=== PATIENT | male | born 1955 | race American Indian/Alaskan Native ===

== ENCOUNTER 2017-12-31 16:30 | Emergency (ER) | payer MEDICAID ==
[2017-12-31 16:45] VITALS: BP 148/77
[2017-12-31] MEDS ORDERED: DECADRON IM ONE (17:38)
--- NOTE | 2017-12-31 17:38 | Emergency Department Report ---
ED Rash HPI - HPI Chief Complaint: Skin Rash Stated Complaint: RASH ALL OVER Time Seen by Provider: 12/31/17 17:18 Duration: Today Location: Neck, Back, Upper Extremities, Lower Extremities Suspected Cause: Unknown Rash Symptoms: Yes Itching, No Facial Swelling, No Tongue/Oral Swelling, No Breathing Difficulties, No Choking Sensation, No Wheezing/Dyspnea, No Peeling, No Blistering, No Fever, No Lightheaded, No Malaise, No Myalgias Other History: This is a 62-year-old -[place] male presents with a generalized pruritic rash. Patient states he was leaning down and bear full itching around 2 PM today. He noted this rash to the neck, posterior torso, and extremities. 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 Past medical history of HIV. PCP is at [facility]. he denies drooling, shortness of breath, difficulty swallowing, or chest pain. ED Review of Systems ROS: Stated complaint: RASH ALL OVER Other details as noted in HPI Respiratory: denies: cough, shortness of breath, wheezing Cardiovascular: denies: chest pain, palpitations Gastrointestinal: denies: abdominal pain, nausea, diarrhea Musculoskeletal: denies: back pain, joint swelling, arthralgia Skin: rash (generalized pruritic rash). denies: lesions Neurological: denies: headache, weakness, paresthesias Psychiatric: denies: anxiety, depression ED Past Medical Hx - Past Medical History Previous Medical History?: Yes Hx HIV: Yes Additional medical history: cardiac stent - Surgical History Past Surgical History?: Yes Additional Surgical History: cardiac stent - Social History Smoking Status: Current Every Day Smoker Substance Use Type: None - Medications Home Medications: Home Medications Medication Instructions Recorded Confirmed Last Taken Type Prednisone [predniSONE 10 mg 10 mg PO .TAPER #1 tab.ds.pk 12/31/17 Unknown Rx (6-Day Pack, 21 Tabs)] hydrOXYzine PAMOATE [Vistaril] 25 mg PO Q6HR PRN #12 capsule 12/31/17 Unknown Rx Rash Exam - Exam General: Vital signs noted. No distress. Alert and acting appropriately. HEENT: No Periorbital Edema, No Conjuctival Injection, No Chemosis, No Perioral Edema, No Tongue Edema, No Uvular Edema, No Compromised Airway, No Drooling Lungs: Yes Good Air Exchange (Normal Breath Sounds), No Wheezes, No Ronchi, No Stridor, No Cough, No Labored Respirations, No Retractions, No Use of Accessory Muscles, No Other Abnormal Lung Sounds Heart: Yes Regular, No Murmur Skin: Yes Maculopapular Rash (erythematous maculopapular rash to posterior neck , posterior torso, bilateral lower extremity, blanchable), No Urticarial Rash, No Morbilliform rash, No Bulla(e), No Excoriations, No Weeping, No Tenderness, No Erythema, No Edema, No Encrustations ED Course Vital Signs 12/31/17 16:44 Temperature 97.8 F Pulse Rate 68 Respiratory 16 Rate Blood Pressure 148/77 [Right] O2 Sat by Pulse 99 Oximetry ED Medical Decision Making - Medical Decision Making Patient was examined by this provider in fast track. Vitals are normal and patient is in no acute distress. Given dexamethasone 8 mg IM once while in ER. Physical findings susceptible of allergic contact dermatitis. Start prednisone taper and Vistaril. Patient discharged home in stable condition. Follow up with PCP in 2-3 days. Critical care attestation.: If time is entered above; I have spent that time in minutes in the direct care of this critically ill patient, excluding procedure time. ED Disposition Clinical Impression: Pruritic rash Contact dermatitis Qualifiers: Contact dermatitis type: allergic Contact dermatitis trigger: unspecified trigger Qualified Code(s): L23.9 - Allergic contact dermatitis, unspecified cause Disposition: - TO HOME OR SELFCARE Is pt being admited?: No Does the pt Need Aspirin: No Condition: Stable Instructions: Contact Dermatitis (ED) Additional Instructions: Complete full course of steroids since prescribed. Follow-up with your primary care provider in the next week. Return to the emergency room if short of breath, chest pain, or difficulty breathing. Prescriptions: hydrOXYzine PAMOATE [Vistaril] 25 mg PO Q6HR PRN #12 capsule PRN Reason: Itching Prednisone [predniSONE 10 mg (6-Day Pack, 21 Tabs)] 10 mg PO .TAPER #1 tab.ds.pk Referrals: [facility] [Outside] - 3-5 Days [facility] [Outside] - 3-5 Days Forms: Work/School Release Form(ED), Accompanied Note Time of Disposition: 18:17
== END 2017-12-31 18:40 | disposition home or self-care (01) ==
LOC: ED 16:30
DX: L25.9 Unspecified contact dermatitis, unspecified cause (principal); F17.200 Nicotine dependence, unspecified, uncomplicated
CPT/HCPCS: 96372; 99282; J1100

== ENCOUNTER 2019-05-30 10:53 | Emergency (ER) | payer MEDICAID ==
--- NOTE | 2019-05-30 15:51 | Emergency Department Report ---
ED General Adult HPI - General Chief complaint: Neck Pain/Injury Stated complaint: PAIN IN LEFT SIDE OF NECK Time Seen by Provider: 05/30/19 14:39 Source: patient Mode of arrival: Ambulatory Limitations: No Limitations - History of Present Illness Initial comments: This is a 64-year-old -[place]ian male who presents to the emergency room with sore throat and swollen lymph nodes on left side of neck for 2 to 3 days. Past medical history of hypertension, HIV, and cardiac stents. Patient reports her chronic occasional smoker's cough. He denies shortness of breath, chest pain, fever, chills, nausea, vomiting, or weakness. Onset/Timin -: days(s) Location: neck (Sore throat) Severity scale (0 -10): 6 Quality: aching Consistency: intermittent Worsens with: eating, other (Swallowing) Associated Symptoms: denies other symptoms Treatments Prior to Arrival: none - Related Data Previous Rx's Medication Instructions Recorded Last Taken Type Prednisone [predniSONE 10 mg 10 mg PO .TAPER #1 tab.ds.pk 12/31/17 Unknown Rx (6-Day Pack, 21 Tabs)] hydrOXYzine PAMOATE [Vistaril] 25 mg PO Q6HR PRN #12 capsule 12/31/17 Unknown Rx Ibuprofen [Motrin 800 MG tab] 800 mg PO Q8HR PRN #15 tablet 02/06/18 Unknown Rx Nystas/Diphen/Xyl Visc/Mylanta 15 ml PO Q3H PRN #100 ml 05/30/19 Unknown Rx [Magic Mouthwash] Penicillin Vk [Veetids TAB] 250 mg PO QID 10 Days #40 tablet 05/30/19 Unknown Rx Allergies Allergy/AdvReac Type Severity Reaction Status Date / Time No Known Allergies Allergy Verified 02/06/18 00:30 ED Review of Systems ROS: Stated complaint: PAIN IN LEFT SIDE OF NECK Other details as noted in HPI Constitutional: denies: chills, fever ENT: throat pain. denies: ear pain Respiratory: denies: cough, shortness of breath, wheezing Cardiovascular: denies: chest pain, palpitations Gastrointestinal: denies: abdominal pain, nausea, diarrhea Musculoskeletal: denies: back pain, joint swelling, arthralgia Skin: denies: rash, lesions Neurological: denies: headache, weakness, paresthesias Psychiatric: denies: anxiety, depression ED Past Medical Hx - Past Medical History Previous Medical History?: Yes Hx Hypertension: Yes Hx Diabetes: Yes Hx HIV: Yes (on anti-virals) Additional medical history: cardiac stent - Surgical History Past Surgical History?: Yes Hx Coronary Stent: Yes (x1) Additional Surgical History: cardiac stent - Social History Smoking Status: Current Every Day Smoker Substance Use Type: None - Medications Home Medications: Home Medications Medication Instructions Recorded Confirmed Last Taken Type Prednisone [predniSONE 10 mg 10 mg PO .TAPER #1 tab.ds.pk 12/31/17 Unknown Rx (6-Day Pack, 21 Tabs)] hydrOXYzine PAMOATE [Vistaril] 25 mg PO Q6HR PRN #12 capsule 12/31/17 Unknown Rx Ibuprofen [Motrin 800 MG tab] 800 mg PO Q8HR PRN #15 tablet 02/06/18 Unknown Rx Nystas/Diphen/Xyl Visc/Mylanta 15 ml PO Q3H PRN #100 ml 05/30/19 Unknown Rx [Magic Mouthwash] Penicillin Vk [Veetids TAB] 250 mg PO QID 10 Days #40 tablet 05/30/19 Unknown Rx ED Physical Exam - General Limitations: No Limitations General appearance: alert, in no apparent distress - ENT ENT exam: Present: mucous membranes moist, TM's normal bilaterally, normal external ear exam. Absent: normal orophraynx (Erythematous and enlarged tonsils without exudate, uvula midline without swelling) - Neck Neck exam: Present: full ROM, lymphadenopathy (Left anterior cervical TTP, mobile) - Respiratory Respiratory exam: Present: normal lung sounds bilaterally. Absent: respiratory distress - Cardiovascular Cardiovascular Exam: Present: regular rate, normal rhythm. Absent: systolic murmur, diastolic murmur, rubs, gallop - GI/Abdominal GI/Abdominal exam: Present: soft, normal bowel sounds. Absent: distended, tenderness, guarding, rebound, rigid - Extremities Exam Extremities exam: Present: normal inspection - Neurological Exam Neurological exam: Present: alert, oriented X3, normal gait - Psychiatric Psychiatric exam: Present: normal affect, normal mood - Skin Skin exam: Present: warm, dry, intact, normal color. Absent: rash ED Course Vital Signs 05/30/19 05/30/19 11:10 16:49 Temperature 98.2 F Pulse Rate 75 71 Respiratory 18 16 Rate Blood Pressure 141/72 Blood Pressure 136/68 [Left] O2 Sat by Pulse 97 99 Oximetry ED Medical Decision Making - Medical Decision Making This is a 64 y.o. male that presents with sore throat cervical lymphadenopathy for 2 to 3 days. Past medical history of HIV, hypertension, and cardiac stents. Patient is nontoxic in appearance. No distress noted. Vitals are normal. No trismus, no airway compromise, able to tolerate p.o. Centor for strep positive. Rapid strep and culture pending. Start antibiotics. Take Tylenol or ibuprofen for pain. Discussed plan with patient and he agreed with plan to treat outpatient. Discharged home stable with strict return instructions. Return to work tomorrow. Follow up with PCP in 48-72 hours. Critical care attestation.: If time is entered above; I have spent that time in minutes in the direct care of this critically ill patient, excluding procedure time. ED Disposition Clinical Impression: Sore throat Acute pharyngitis Qualifiers: Pharyngitis/tonsillitis etiology: unspecified etiology Qualified Code(s): J02.9 - Acute pharyngitis, unspecified Disposition: TO HOME OR SELFCARE Is pt being admited?: No Condition: Stable Instructions: Pharyngitis (ED) Additional Instructions: Expect symptoms to improve within 3 or 4 days. There is no need for bed rest or isolation. Use Tylenol or Ibuprofen for symptoms of sore throat, headache, and fever. Return to work in 24 hours of taking antibiotics. Follow up with Primary Care Provider in 48-72 hours. Prescriptions: Nystas/Diphen/Xyl Visc/Mylanta [Magic Mouthwash] 15 ml PO Q3H PRN #100 ml PRN Reason: Sore Throat Penicillin Vk [Veetids TAB] 250 mg PO QID 10 Days #40 tablet Referrals: KAMILLE VERGARA DO [Staff Physician] - 3-5 Days [facility] [Outside] - 3-5 Days [facility] [Outside] - 3-5 Days Forms: Work/School Release Form(ED) Time of Disposition: 16:40
[2019-05-30 16:50] VITALS: BP 136/68
== END 2019-05-30 16:49 | disposition home or self-care (01) ==
LOC: ED 10:53
DX: J02.9 Acute pharyngitis, unspecified (principal); I10 Essential (primary) hypertension; E11.9 Type 2 diabetes mellitus without complications; F17.200 Nicotine dependence, unspecified, uncomplicated; Z21 Asymptomatic human immunodeficiency virus [HIV] infection status; Z98.890 Other specified postprocedural states; Z79.1 Long term (current) use of non-steroidal anti-inflammatories (NSAID); Z79.899 Other long term (current) drug therapy
CPT/HCPCS: 87116; 87430; 99283

== ENCOUNTER 2019-07-23 17:19 | Emergency (ER) | payer MEDICAID ==
--- NOTE | 2019-07-23 18:24 | Emergency Department Report ---
ED ENT HPI - General Chief complaint: Dental/Oral Stated complaint: LFT SIDE ABCESS/SWELLING/PAIN Time Seen by Provider: 07/23/19 18:05 Source: patient Mode of arrival: Ambulatory Limitations: No Limitations - History of Present Illness Initial comments: The patient is a 64-year-old male who presents to ED complaining of pain in the left side of his mouth x 3 days . Patient states that the pain started 3 days ago and has increased in severity over the last 2 days with swelling to the right upper cheek. The pain is exacerbated by eating and opening of the mouth. Patient states the pain is alleviated initially with pain medication but comes back. Patient states that it radiates towards ear. Patient describes a as a throbbing, pressure-like sensation. Patient states otherwise well and has no other complaints. Patient has had no fevers and no chills. No chest pain, no shortness of breath. No abdominal pain. No shortness of breath or recent trauma to the face. MD complaint: tooth pain - Related Data Previous Rx's Medication Instructions Recorded Last Taken Type Prednisone [predniSONE 10 mg 10 mg PO .TAPER #1 tab.ds.pk 12/31/17 Unknown Rx (6-Day Pack, 21 Tabs)] hydrOXYzine PAMOATE [Vistaril] 25 mg PO Q6HR PRN #12 capsule 12/31/17 Unknown Rx Ibuprofen [Motrin 800 MG tab] 800 mg PO Q8HR PRN #15 tablet 02/06/18 Unknown Rx Nystas/Diphen/Xyl Visc/Mylanta 15 ml PO Q3H PRN #100 ml 05/30/19 Unknown Rx [Magic Mouthwash] Penicillin Vk [Veetids TAB] 250 mg PO QID 10 Days #40 tablet 05/30/19 Unknown Rx Clindamycin [Clindamycin CAP] 300 mg PO Q8H #21 cap 07/23/19 Unknown Rx Allergies Allergy/AdvReac Type Severity Reaction Status Date / Time No Known Allergies Allergy Verified 02/06/18 00:30 ED Dental HPI - General Chief complaint: Dental/Oral Stated complaint: LFT SIDE ABCESS/SWELLING/PAIN Time Seen by Provider: 07/23/19 18:05 Source: patient Mode of arrival: Ambulatory Limitations: No Limitations - Related Data Previous Rx's Medication Instructions Recorded Last Taken Type Prednisone [predniSONE 10 mg 10 mg PO .TAPER #1 tab.ds.pk 12/31/17 Unknown Rx (6-Day Pack, 21 Tabs)] hydrOXYzine PAMOATE [Vistaril] 25 mg PO Q6HR PRN #12 capsule 12/31/17 Unknown Rx Ibuprofen [Motrin 800 MG tab] 800 mg PO Q8HR PRN #15 tablet 02/06/18 Unknown Rx Nystas/Diphen/Xyl Visc/Mylanta 15 ml PO Q3H PRN #100 ml 05/30/19 Unknown Rx [Magic Mouthwash] Penicillin Vk [Veetids TAB] 250 mg PO QID 10 Days #40 tablet 05/30/19 Unknown Rx Clindamycin [Clindamycin CAP] 300 mg PO Q8H #21 cap 07/23/19 Unknown Rx Allergies Allergy/AdvReac Type Severity Reaction Status Date / Time No Known Allergies Allergy Verified 02/06/18 00:30 ED Review of Systems ROS: Stated complaint: LFT SIDE ABCESS/SWELLING/PAIN Other details as noted in HPI Comment: All other systems reviewed and negative ED Past Medical Hx - Past Medical History Previous Medical History?: Yes Hx Hypertension: Yes Hx Diabetes: Yes Hx HIV: Yes (on anti-virals) Additional medical history: cardiac stent - Surgical History Past Surgical History?: Yes Hx Coronary Stent: Yes (x1) Additional Surgical History: cardiac stent - Social History Smoking Status: Current Every Day Smoker Substance Use Type: None - Medications Home Medications: Home Medications Medication Instructions Recorded Confirmed Last Taken Type Prednisone [predniSONE 10 mg 10 mg PO .TAPER #1 tab.ds.pk 12/31/17 Unknown Rx (6-Day Pack, 21 Tabs)] hydrOXYzine PAMOATE [Vistaril] 25 mg PO Q6HR PRN #12 capsule 12/31/17 Unknown Rx Ibuprofen [Motrin 800 MG tab] 800 mg PO Q8HR PRN #15 tablet 02/06/18 Unknown Rx Nystas/Diphen/Xyl Visc/Mylanta 15 ml PO Q3H PRN #100 ml 05/30/19 Unknown Rx [Magic Mouthwash] Penicillin Vk [Veetids TAB] 250 mg PO QID 10 Days #40 tablet 05/30/19 Unknown Rx Clindamycin [Clindamycin CAP] 300 mg PO Q8H #21 cap 07/23/19 Unknown Rx ED Physical Exam - General Limitations: No Limitations General appearance: alert, in no apparent distress - Head Head exam: Present: atraumatic, normocephalic - Eye Eye exam: Present: normal appearance - ENT ENT exam: Present: mucous membranes moist - Expanded ENT Exam Expanded Ear exam: Present: normal external inspection Mouth exam: Present: normal external inspection, other (swollen upper left cheek) Teeth exam: Present: dental caries, gingival enlargement (01/25), other (No pus drainage) Throat exam: Positive: normal inspection - Neck Neck exam: Present: normal inspection, full ROM. Absent: tenderness - Respiratory Respiratory exam: Present: normal lung sounds bilaterally. Absent: respiratory distress - Cardiovascular Cardiovascular Exam: Present: regular rate, normal rhythm. Absent: systolic murmur, diastolic murmur, rubs, gallop - GI/Abdominal GI/Abdominal exam: Present: soft, normal bowel sounds - Rectal Rectal exam: Present: deferred - Extremities Exam Extremities exam: Present: normal inspection - Back Exam Back exam: Present: normal inspection - Neurological Exam Neurological exam: Present: alert, oriented X3 - Psychiatric Psychiatric exam: Present: normal affect, normal mood - Skin Skin exam: Present: warm, dry, intact, normal color. Absent: rash ED Course Vital Signs 07/23/19 07/23/19 17:20 18:31 Temperature 98 F Pulse Rate 62 Respiratory 18 18 Rate Blood Pressure 161/63 O2 Sat by Pulse 99 Oximetry ED Medical Decision Making - Medical Decision Making 64-year-old male who presents with left-sided Facial pain and swelling secondary to odontogenic abscess ED course: Odontogenic infection versus ear infection. Based upon history and physical examination, pain is a result of an infection of tooth number 12 and that the pain Pt feels on the right side of his face and towards the ear is referred pain from this infectious process. Pt has no evidence of acute impending airway compromise. At this point, patient will be discharged home on some antibiotics and pain trial, she will do well with an outpatient course of antibiotics. Follow up with the Dental Clinic as referred Vital signs are normal patient is in no acute distress. Pt had an effect uneventful ED stay Critical care attestation.: If time is entered above; I have spent that time in minutes in the direct care of this critically ill patient, excluding procedure time. ED Disposition Clinical Impression: Dental abscess, Pain, dental Disposition: TO HOME OR SELFCARE Is pt being admited?: No Does the pt Need Aspirin: No Condition: Stable Instructions: Dental Abscess (ED) Additional Instructions: Make sure to follow up with t your dentist as discussed. Take all your medications as you've been prescribed. If you have any worsening symptoms or develop new symptoms please return to ED immediately. Prescriptions: Clindamycin [Clindamycin CAP] 300 mg PO Q8H #21 cap Referrals: PRIMARY CARE, [Primary Care Provider] - 3-5 Days [facility] [Outside] - 3-5 Days Forms: Work/School Release Form(ED) Time of Disposition: 18:24
[2019-07-23] MEDS ORDERED: IBUPROFEN 800 MG TAB PO ONE (18:28)
== END 2019-07-23 18:33 | disposition home or self-care (01) ==
LOC: ED 17:19
DX: K04.7 Periapical abscess without sinus (principal); K08.89 Other specified disorders of teeth and supporting structures; I10 Essential (primary) hypertension; E11.9 Type 2 diabetes mellitus without complications; F17.200 Nicotine dependence, unspecified, uncomplicated; Z95.5 Presence of coronary angioplasty implant and graft; Z21 Asymptomatic human immunodeficiency virus [HIV] infection status; Z79.899 Other long term (current) drug therapy
CPT/HCPCS: 99282

== ENCOUNTER 2021-03-29 16:28 | Emergency (ER) | payer MEDICAID ==
[2021-03-29 17:14] VITALS: BP 142/72
--- NOTE | 2021-03-29 18:11 | Emergency Department Report ---
ED Chest Pain HPI - General Chief Complaint: Chest Pain Stated Complaint: CHEST PAIN Time Seen by Provider: 03/29/21 17:05 Source: patient Mode of arrival: Ambulatory Limitations: No Limitations - History of Present Illness Initial Comments: 65-year-old male with a past medical history of diabetes, HIV with undetectable viral load currently on antiretrovirals, hypertension, and CAD with cardiac stent presents to the hospital with complaints of cough and cold symptoms and chest pain for the last 3 days. Patient has cough productive of yellow phlegm with sweats without documented fever. He complains of left-sided chest pain that is worse with cough and movement. Patient did take an old nitroglycerin in an effort to improve pain. Patient has been taken goci-rfs-vsureyn medications in an effort to improve his symptoms. He denies shortness of breath, nausea, vomiting, and is unvaccinated for COVID. - Related Data Previous Rx's Medication Instructions Recorded Last Taken Type Prednisone [predniSONE 10 mg 10 mg PO .TAPER #1 tab.ds.pk 12/31/17 Unknown Rx (6-Day Pack, 21 Tabs)] hydrOXYzine PAMOATE [Vistaril] 25 mg PO Q6HR PRN #12 capsule 12/31/17 Unknown Rx Ibuprofen [Motrin 800 MG tab] 800 mg PO Q8HR PRN #15 tablet 02/06/18 Unknown Rx Nystas/Diphen/Xyl Visc/Mylanta 15 ml PO Q3H PRN #100 ml 05/30/19 Unknown Rx [Magic Mouthwash] Penicillin Vk [Veetids TAB] 250 mg PO QID 10 Days #40 tablet 05/30/19 Unknown Rx Clindamycin [Clindamycin CAP] 300 mg PO Q8H #21 cap 07/23/19 Unknown Rx Aspirin 325 mg PO QDAY #30 tablet 03/29/21 Unknown Rx Azithromycin [Zithromax Z-PORTILLO] 250 mg PO DAILY #4 03/29/21 Unknown Rx Benzonatate [Tessalon Perles] 100 mg PO Q8HR PRN #20 cap 03/29/21 Unknown Rx Allergies Allergy/AdvReac Type Severity Reaction Status Date / Time No Known Allergies Allergy Verified 02/06/18 00:30 Heart Score - HEART Score History: Slightly suspicious EKG: Non-specific Age: 45-65 Risk factors: 1-2 risk factors Troponin: < normal limit HEART Score: 3 - EKG Read Time Time EKG Completed: 18:47 EKG Read Time: 18:51 ED Review of Systems ROS: Stated complaint: CHEST PAIN Other details as noted in HPI Comment: All other systems reviewed and negative ED Past Medical Hx - Past Medical History Previous Medical History?: Yes Hx Hypertension: Yes Hx Diabetes: Yes Hx HIV: Yes (on anti-virals) Additional medical history: cardiac stent - Surgical History Past Surgical History?: Yes Hx Coronary Stent: Yes (x1) Additional Surgical History: cardiac stent - Social History Smoking Status: Current Every Day Smoker Substance Use Type: None - Medications Home Medications: Home Medications Medication Instructions Recorded Confirmed Last Taken Type Prednisone [predniSONE 10 mg 10 mg PO .TAPER #1 tab.ds.pk 12/31/17 Unknown Rx (6-Day Pack, 21 Tabs)] hydrOXYzine PAMOATE [Vistaril] 25 mg PO Q6HR PRN #12 capsule 12/31/17 Unknown Rx Ibuprofen [Motrin 800 MG tab] 800 mg PO Q8HR PRN #15 tablet 02/06/18 Unknown Rx Nystas/Diphen/Xyl Visc/Mylanta 15 ml PO Q3H PRN #100 ml 05/30/19 Unknown Rx [Magic Mouthwash] Penicillin Vk [Veetids TAB] 250 mg PO QID 10 Days #40 tablet 05/30/19 Unknown Rx Clindamycin [Clindamycin CAP] 300 mg PO Q8H #21 cap 07/23/19 Unknown Rx Aspirin 325 mg PO QDAY #30 tablet 03/29/21 Unknown Rx Azithromycin [Zithromax Z-PORTILLO] 250 mg PO DAILY #4 03/29/21 Unknown Rx Benzonatate [Tessalon Perles] 100 mg PO Q8HR PRN #20 cap 03/29/21 Unknown Rx ED Physical Exam - General Limitations: No Limitations - Other Other exam information: General: No acute distress Head: Atraumatic Eyes: normal appearance ENT: Moist mucous membranes Neck: Normal appearance, no midline tenderness Chest: Clear to auscultation bilaterally CV: Regular rate and rhythm Abdomen: Soft, normal bowel sounds, nontender, nondistended, no rebound or guarding Back: Normal inspection Extremity: Normal inspection, full range of motion, no calf tenderness or leg edema Neuro: Alert O x 3, no facial asymmetry, speech clear, no gross motor sensory deficit Psych: Appropriate behavior Skin: No rash ED Course Vital Signs 03/29/21 16:37 Temperature 97.9 F Pulse Rate 82 Respiratory 15 Rate Blood Pressure 142/72 O2 Sat by Pulse 98 Oximetry HUNG score - Hung Score Age > 65: (0) No Aspirin use within the Past 7 Days: (0) No 3 or more CAD Risk Factors: (1) Yes 2 or more Angina events in past 24 hrs: (0) No Known CAD with more than 50% Stenosis: (1) Yes Elevated Cardiac Markers: (0) No ST Deviation Greater than 0.5mm: (0) No HUNG Score: 2 ED Medical Decision Making - Lab Data Result diagrams: 03/29/21 17:41 03/29/21 17:41 - EKG Data -: EKG Interpreted by Me (septal q waves) EKG shows normal: sinus rhythm, ST-T waves (no stemi) Rate: normal - EKG Data When compared to previous EKG there are: previous EKG unavailable - Radiology Data Radiology results: report reviewed CHEST 2 VIEWS INDICATION / CLINICAL INFORMATION: cough, sob. COMPARISON: None available. FINDINGS: SUPPORT DEVICES: None. HEART / MEDIASTINUM: No significant abnormality. LUNGS / PLEURA: There are minimal parenchymal opacities in the lung bases which could represent atelectasis or evolving pneumonia No pneumothorax. ADDITIONAL FINDINGS: No significant additional findings. IMPRESSION: 1. There are minimal parenchymal opacities in the lung bases which could represent atelectasis or evolving pneumonia. - Medical Decision Making 65-year-old male presents with respiratory symptoms of infection in addition to left-sided chest pain worse with coughing. Patient does have history of CAD with stents and EKG shows previous IL. Previous EKG unavailable for comparison. Patient had chest pain intermittently for last 3 days and has a negative troponin, no signs of STEMI, and does not have current chest pain. Heart score 3. X-ray suggestive of atelectasis versus pneumonia. Given patient's respiratory symptoms he will be treated for pneumonia and URI symptoms. He is unvaccinated for COVID therefore COVID test recommended. No signs of hypoxia at this time - Differential Diagnosis CAD, muscle strain, URI, COVID, pneumonia Critical Care Time: No Critical care attestation.: If time is entered above; I have spent that time in minutes in the direct care of this critically ill patient, excluding procedure time. ED Disposition Clinical Impression: Atypical pneumonia, Atypical chest pain, History of heart artery stent, HIV (human immunodeficiency virus infection) Disposition: HOME / SELF CARE / HOMELESS Is pt being admited?: No Does the pt Need Aspirin: No Condition: Stable Instructions: Nonspecific Chest Pain, Adult, [id number], Community-Acquired Pneumonia, Adult, Prevent the Spread of COVID-19 if You Are Sick - [facility] [place] Additional Instructions: Take the medication as prescribed. Take Tylenol as needed for fever. Your x-ray shows findings suggestive of pneumonia. I recommend that you obtain a COVID test and no your status since you are unvaccinated Cardiology referral also provided given your history of cardiac stent. Aspirin prescribed to be taken daily Follow-up with your doctor or doctor/clinic provided. Return if symptoms worsen as indicated by your discharge instructions. Prescriptions: Aspirin 325 mg PO QDAY #30 tablet Benzonatate [Tessalon Perles] 100 mg PO Q8HR PRN #20 cap PRN Reason: Cough Azithromycin [Zithromax Z-PORTILLO] 250 mg PO DAILY #4 Referrals: PRIMARY MD SANJANA [Primary Care Provider] - 3-5 Days NABILA GUILLEN MD [Staff Physician] - 3-5 Days (primary care doctor ) LEV GRANADOS MD [Staff Physician] - 3-5 Days (cardiology )
--- NOTE | 2021-03-29 18:21 | XRay Report ---
CHEST 2 VIEWS INDICATION / CLINICAL INFORMATION: cough, sob. COMPARISON: None available. FINDINGS: SUPPORT DEVICES: None. HEART / MEDIASTINUM: No significant abnormality. LUNGS / PLEURA: There are minimal parenchymal opacities in the lung bases which could represent atele ctasis or evolving pneumonia No pneumothorax. ADDITIONAL FINDINGS: No significant additional findings. IMPRESSION: 1. There are minimal parenchymal opacities in the lung bases which could represent atelectasis or mauricio lving pneumonia. Signer Name: Jose Jaramillo MD Signed: 03/29/2021 6:17 PM Workstation Name: [id number]
[2021-03-29] MEDS ORDERED: AZITHROMYCIN 250 MG TAB PO ONE (18:25)
[2021-03-29 18:38] LABS: Basophils % (Auto) 0.4 % (0.0-1.8); Eosinophils % (Auto) 0.4 % (0.0-4.3); Hematocrit 38.2 % (35.5-45.6); Hemoglobin 12.6 gm/dl (11.8-15.2); Lymphocytes # (Auto) 0.6 K/mm3 (1.2-5.4); Lymphocytes % (Auto) 14.1 % (13.4-35.0); Mean Corpuscular HGB Conc 33 % (32-34); Mean Corpuscular Volume 89 fl (84-94); Monocytes # (Auto) 0.4 K/mm3 (0.0-0.8); Monocytes % (Auto) 10.4 % (0.0-7.3); Red Blood Count 4.27 M/mm3 (3.65-5.03); Red Cell Distribution Width 13.3 % (13.2-15.2)
[2021-03-29 19:04] LABS: Platelet Count 151 K/mm3 (140-440)
[2021-03-29 19:21] LABS: BUN/Creatinine Ratio 15; Blood Urea Nitrogen 12 mg/dL (9-20); Calcium 8.4 mg/dL (8.4-10.2); Hemolysis Index 1
--- NOTE | 2021-04-02 09:16 | Electrocardiograph Report ---
[facility] Test Date: 2021-03-29 Test Time: 18:47:35 Pat Name: DARLINE DOMINGO Department: Room: Gender: M Kettle Coordinator: KOURTNEY : 1955 Requested By: NISA TAYLOR Order Number: [id number] Reading MD: Abdirashid Bear Measurements Intervals Roberts Rate: 58 P: 36 NC: 152 QRS: 49 QRSD: 113 T: 64 QT: 405 QTc: 399 Interpretive Statements Sinus bradycardia Probable anteroseptal infarct, old No previous ECG available for comparison Electronically Signed On 04-02-2021 9:15:57 EST by Abdirashid Bear
== END 2021-03-29 20:12 | disposition home or self-care (01) ==
LOC: ED 16:28
DX: J18.9 Pneumonia, unspecified organism (principal); R07.89 Other chest pain; Z95.5 Presence of coronary angioplasty implant and graft; B20 Human immunodeficiency virus [HIV] disease; F17.200 Nicotine dependence, unspecified, uncomplicated
CPT/HCPCS: 36415; 71046; 80048; 84484; 85025; 93005; 99284

== ENCOUNTER 2021-04-01 11:32 | Observation (INO) | payer MEDICAID ==
[2021-04-01] MEDS ORDERED: ASPIRIN 325 MG TAB PO ONE (12:02)
--- NOTE | 2021-04-01 12:03 | Emergency Department Report ---
ED Chest Pain HPI - General Chief Complaint: Chest Pain Stated Complaint: MED CLEARENCE Time Seen by Provider: 04/01/21 11:54 Source: patient Mode of arrival: Ambulatory Limitations: No Limitations - History of Present Illness Initial Comments: 65 year AA male with pmhx of CAD s/p stent x 1, HIV, and BPH presents to ED with complaints to ED with Left sided chest pain. Patient states that his pain started around 830 this morning when he was getting out of the shower. He describes as a "locking pain" which when intensifies radiates over into his righ t chest. He states that at the time the chest pain started he felt generally weak, and got hot all over. He states that he had to go sit on his bed after which the pain improved. He states that he was unable to come this morning because he he did not have transportation until now. He states that since 830 this morning the pain has been intermittent with associated shortness of breath. He is unable to described modifying factors. He denies any associated nausea, vomiting, back pain, lower extremity swelling or calf pain. Patient states that he was seen here last week for similar symptoms. He states that he was told he had pneumonia and was prescribed medications to take which he is still taking. He states that he still has intermittent cough but it has improved. He denies any wheezing, fever, chills, URI symptoms. Patient was seen here on March 29, 2021 for similar symptoms. Chest x-ray at that time showed minimal parenchymal opacities in the lung bases which could represent atelectasis or evolving pneumonia. Patient was diagnosed with CAD, muscle strain, URI, COVID-pneumonia and DC'd home on aspirin 325, Tessalon Perles and Z-Ke. Patient states that he is still taking the medications he was prescribed including taking ASA this morning. He is not vaccinated and did not get a COVID 19 test when he was d/jason from ED 3 days ago. Patient states that he has not seen his clinical lab assistant in 2 years. He does have an appointment scheduled for April 18 with [facility] to see Dr. Chaim Fregoso MD. Complaint: chest pain -: This morning (8:30am ) - Related Data Previous Rx's Medication Instructions Recorded Last Taken Type Prednisone [predniSONE 10 mg 10 mg PO .TAPER #1 tab.ds.pk 12/31/17 Unknown Rx (6-Day Pack, 21 Tabs)] hydrOXYzine PAMOATE [Vistaril] 25 mg PO Q6HR PRN #12 capsule 12/31/17 Unknown Rx Ibuprofen [Motrin 800 MG tab] 800 mg PO Q8HR PRN #15 tablet 02/06/18 Unknown Rx Nystas/Diphen/Xyl Visc/Mylanta 15 ml PO Q3H PRN #100 ml 05/30/19 Unknown Rx [Magic Mouthwash] Penicillin Vk [Veetids TAB] 250 mg PO QID 10 Days #40 tablet 05/30/19 Unknown Rx Clindamycin [Clindamycin CAP] 300 mg PO Q8H #21 cap 07/23/19 Unknown Rx Aspirin 325 mg PO QDAY #30 tablet 03/29/21 Unknown Rx Azithromycin [Zithromax Z-KE] 250 mg PO DAILY #4 03/29/21 Unknown Rx Benzonatate [Tessalon Perles] 100 mg PO Q8HR PRN #20 cap 03/29/21 Unknown Rx Allergies Allergy/AdvReac Type Severity Reaction Status Date / Time No Known Allergies Allergy Verified 04/01/21 11:34 Heart Score - HEART Score History: Moderately suspicious EKG: Normal Age: 45-65 Risk factors: > 3 risk factors or hx of atherosclerotic disease Troponin: < normal limit HEART Score: 4 - EKG Read Time Time EKG Completed: 12:09 EKG Read Time: 12:12 - Critical Actions Critical Actions: 4-6 pts:12-16.6% risk of adverse cardiac event. Should be admitted ED Review of Systems ROS: Stated complaint: MED CLEARENCE Other details as noted in HPI Comment: All other systems reviewed and negative Constitutional: weakness. denies: chills, fever Eyes: denies: eye pain, eye discharge, vision change ENT: denies: ear pain, throat pain Respiratory: shortness of breath Cardiovascular: chest pain Endocrine: no symptoms reported Gastrointestinal: denies: abdominal pain, nausea, diarrhea, constipation, hematemesis, melena, hematochezia Genitourinary: denies: urgency, dysuria, frequency, hematuria, discharge, testicular pain, testicular mass Musculoskeletal: denies: back pain, joint swelling, arthralgia Skin: denies: rash, lesions, change in color, change in hair/nails, pruritus Neurological: weakness. denies: numbness, paresthesias, confusion, abnormal gait, vertigo Psychiatric: denies: anxiety, depression, auditory hallucinations, visual hallucinations, homicidal thoughts ED Past Medical Hx - Past Medical History Hx Hypertension: Yes Hx Diabetes: Yes Hx HIV: Yes (on anti-virals) Additional medical history: cardiac stent - Surgical History Hx Coronary Stent: Yes (x1) Additional Surgical History: cardiac stent - Social History Smoking Status: Current Every Day Smoker Substance Use Type: None - Medications Home Medications: Home Medications Medication Instructions Recorded Confirmed Last Taken Type Prednisone [predniSONE 10 mg 10 mg PO .TAPER #1 tab.ds.pk 12/31/17 Unknown Rx (6-Day Pack, 21 Tabs)] hydrOXYzine PAMOATE [Vistaril] 25 mg PO Q6HR PRN #12 capsule 12/31/17 Unknown Rx Ibuprofen [Motrin 800 MG tab] 800 mg PO Q8HR PRN #15 tablet 02/06/18 Unknown Rx Nystas/Diphen/Xyl Visc/Mylanta 15 ml PO Q3H PRN #100 ml 05/30/19 Unknown Rx [Magic Mouthwash] Penicillin Vk [Veetids TAB] 250 mg PO QID 10 Days #40 tablet 05/30/19 Unknown Rx Clindamycin [Clindamycin CAP] 300 mg PO Q8H #21 cap 07/23/19 Unknown Rx Aspirin 325 mg PO QDAY #30 tablet 03/29/21 Unknown Rx Azithromycin [Zithromax Z-KE] 250 mg PO DAILY #4 03/29/21 Unknown Rx Benzonatate [Tessalon Perles] 100 mg PO Q8HR PRN #20 cap 03/29/21 Unknown Rx ED Physical Exam - General Limitations: No Limitations General appearance: alert, in no apparent distress - Head Head exam: Present: atraumatic, normocephalic, normal inspection - Eye Eye exam: Present: normal appearance, PERRL, EOMI Pupils: Present: normal accommodation - Neck Neck exam: Present: normal inspection, full ROM. Absent: meningismus - Respiratory Respiratory exam: Present: normal lung sounds bilaterally. Absent: respiratory distress, wheezes, rales, rhonchi, chest wall tenderness - Cardiovascular Cardiovascular Exam: Present: regular rate, normal rhythm, normal heart sounds - GI/Abdominal GI/Abdominal exam: Present: soft. Absent: distended, tenderness, guarding, rebound - Extremities Exam Extremities exam: Present: normal inspection, full ROM. Absent: pedal edema, calf tenderness - Neurological Exam Neurological exam: Present: alert, oriented X3, CN II-XII intact, normal gait - Psychiatric Psychiatric exam: Present: normal affect, normal mood - Skin Skin exam: Present: intact ED Course Vital Signs 04/01/21 04/01/21 11:40 17:06 Temperature 97.5 F L Pulse Rate 55 L 49 L Respiratory 20 16 Rate Blood Pressure 165/73 Blood Pressure 153/60 [Right] O2 Sat by Pulse 97 97 Oximetry HUNG score - Hung Score Age > 65: (0) No Aspirin use within the Past 7 Days: (0) No 3 or more CAD Risk Factors: (1) Yes 2 or more Angina events in past 24 hrs: (0) No Known CAD with more than 50% Stenosis: (1) Yes Elevated Cardiac Markers: (0) No ST Deviation Greater than 0.5mm: (0) No HUNG Score: 2 ED Medical Decision Making - Lab Data Result diagrams: 04/01/21 12:01 04/01/21 12:01 - EKG Data EKG shows normal: sinus rhythm Rate: bradycardia (53) - EKG Data Interpretation: no acute changes - Radiology Data Radiology results: report reviewed Patient: DARLINE DOMINGO MR#: [id number] : 1955 Acct:[id number] Age/Sex: 65 / M ADM Date: 04/01/21 Loc: ED Attending Dr: Ordering Physician: BEL WANG Date of Service: 04/01/21 Procedure(s): XR chest routine 2V Accession Number(s): [id number] cc: BEL WANG Fluoro Time In Minutes: CHEST 2 VIEWS INDICATION: Chest Pain. COMPARISON: 03/29/2021 FINDINGS: SUPPORT DEVICES: None. HEART: Within normal limits. LUNGS/PLEURA: No acute air space or interstitial disease. No pneumothorax. ADDITIONAL FINDINGS: None. IMPRESSION: 1. No acute findings. Signer Name: Silvino Wiggins MD Signed: 04/01/2021 12:50 PM Workstation Name: [id number] Transcribed By: ARON Dictated By: Silvino Wiggins MD Electronically Authenticated By: Silvino Wiggins MD Signed Date/Time: 04/01/21 1250 DD/ 1249 TD/TT: - Medical Decision Making Labs reviewed -- CBC and CMP unremarkable. Patient initial troponin was less than 0.010. Repeat troponin was 0.013. Initial EKG showed sinus bradycardia with a heart rate of 53 with no STEMI or acute ischemic changes or significant dysrhythmia. Repeat EKG which was done and again showed sinus bradycardia but this time at 41, but no STEMI or significant change compared to the first. Chest x-ray shows nothing acute. Patient D-dimer was at 1183, and so CTA was ordered and pending. 1653: Discussed case with Dr Esther Laura, she recommend consulting cardiology and recommend admitting patient for unstable angina and it was also noted that he was newly bradycardic and he is not a beta-blockers. She also has a heart score of 4. 1715: Discussed case with Dr Mar, clinical lab assistant assistant front office manager, he reviewed plan for admission and they schedule patient to have stress test in the morning. Case discussed with Dr Angel for admission. Critical care attestation.: If time is entered above; I have spent that time in minutes in the direct care of this critically ill patient, excluding procedure time. ED Disposition Clinical Impression: Unstable angina Disposition: 09 ADMITTED INPATIENT Is pt being admited?: Yes Condition: Stable Instructions: Angina, [id number] Referrals: PRIMARY CAREMD [Primary Care Provider] - 3-5 Days
[2021-04-01] MEDS ORDERED: MORPHINE 4 MG/1 ML INJ IV ONE (12:12)
[2021-04-01] MEDS ORDERED: ONDANSETRON 4 MG/2 ML INJ IV ONE (12:12)
--- NOTE | 2021-04-01 12:54 | XRay Report ---
CHEST 2 VIEWS INDICATION: Chest Pain. COMPARISON: 03/29/2021 FINDINGS: SUPPORT DEVICES: None. HEART: Within normal limits. LUNGS/PLEURA: No acute air space or interstitial disease. No pneumothorax. ADDITIONAL FINDINGS: None. IMPRESSION: 1. No acute findings. Signer Name: Silvino Wiggins MD Signed: 04/01/2021 12:50 PM Workstation Name: [id number]
[2021-04-01 13:07] LABS: Basophils % (Auto) 0.4 % (0.0-1.8); Eosinophils % (Auto) 0.3 % (0.0-4.3); Hemoglobin 12.5 gm/dl (11.8-15.2); Lymphocytes # (Auto) 0.4 K/mm3 (1.2-5.4); Lymphocytes % (Auto) 8.5 % (13.4-35.0); Mean Corpuscular HGB Conc 32 % (32-34); Mean Corpuscular Volume 91 fl (84-94); Monocytes # (Auto) 0.4 K/mm3 (0.0-0.8); Monocytes % (Auto) 7.6 % (0.0-7.3); Red Cell Distribution Width 13.3 % (13.2-15.2)
[2021-04-01 13:10] LABS: Platelet Count 119 K/mm3 (140-440)
[2021-04-01 13:31] LABS: Alanine Aminotransferase 15 units/L (7-56); Albumin 3.2 g/dL (3.9-5); BUN/Creatinine Ratio 15; Blood Urea Nitrogen 12 mg/dL (9-20); Calcium 8.8 mg/dL (8.4-10.2); Hemolysis Index 9
--- NOTE | 2021-04-01 17:23 | Cat Scan Report ---
CTA CHEST WITH IV CONTRAST INDICATION: Dyspnea/chest pain/d-dimer 1100. TECHNIQUE: Axial CT images were obtained through the chest after injection of 100 mL Omnipaque 350 IV contrast. 3 plane MIP reconstructions were produced. All CT scans at this location are performed using CT dose reduction for ALARA by means of automated exposure control. COMPARISON: None available. FINDINGS: PULMONARY ARTERIES: No pulmonary emboli. AORTA AND ARTERIES: No acute abnormality. MEDIASTINUM: Mild right hilar adenopathy.. LUNGS: Mild bronchial wall thickening and patchy airspace disease within the right lower lung. Mild e mphysema. ADDITIONAL FINDINGS: None. UPPER ABDOMEN: No acute findings. BONES: No significant osseous abnormality. IMPRESSION: 1. No CT evidence for pulmonary embolism. 2. COPD type change. 3. Mild nonspecific right hilar adenopathy. 4. Faint bronchopneumonia/pneumonitis within the medial aspect of the right lower lobe Signer Name: Damion Michel MD Signed: 04/01/2021 5:19 PM Workstation Name: [id number]
--- NOTE | 2021-04-01 17:30 | History and Physical Report ---
History of Present Illness Chief complaint: It sort of hard to breathe and my chest hurts History of present illness: 65 YO Male with HIV on Antiretroviral therapy, CAD S/P Stent Placement, HTN, DM, BPH, Nicotine Dependence presents to ED for evaluation. Patient reports "it is little hard to breathe and my chest hurts". Patient states that he has experienced intermittent shortness of breath over the past 2 days with intermittent symptoms over the same timeframe. Patient presented to [facility] ED 3 days ago with the aforementioned symptoms and was treated with outpatient antibiotic therapy without improvement of symptoms. Patient returns for further evaluation today. Patient also acknowledges intermittent chest pain which coincides with the shortness of breath. Patient states that the pain is 4/10, intermittent, associated with shortness of breath, generalized weakness, subjective fever, malaise, body aches, dry cough, diminished exercise tolerance. Patient denies exacerbating or alleviating factors. Patient transported to [facility] via private vehicle for further care and evaluation of the aforementioned symptoms. The patient was seen and evaluated in the emergency department. All lab and imaging studies reviewed. Patient found to have a heart rate in the 40s. Patient also found to have angina, as well as pneumonia, bradycardia. Patient mated to medical floor with telemetry and initiated on chest pain protocol, pneumonia protocol, as well as coronavirus protocol. No prior admission for review. No medication listed at time of admission for reconciliation. Advanced care planning conducted in ED. patient is not vaccinated against COVID-19. Past History Past Medical History: CAD, diabetes, HIV/AIDS, hypertension, other (See HPI) Past Surgical History: Other (Cardiac stent placement) Social history: single, smoking. denies: alcohol abuse, prescription drug abuse Medications and Allergies Allergies Allergy/AdvReac Type Severity Reaction Status Date / Time No Known Allergies Allergy Verified 04/01/21 11:34 Home Medications Medication Instructions Recorded Confirmed Last Taken Type Prednisone [predniSONE 10 mg 10 mg PO .TAPER #1 tab.ds.pk 12/31/17 Unknown Rx (6-Day Pack, 21 Tabs)] hydrOXYzine PAMOATE [Vistaril] 25 mg PO Q6HR PRN #12 capsule 12/31/17 Unknown Rx Ibuprofen [Motrin 800 MG tab] 800 mg PO Q8HR PRN #15 tablet 02/06/18 Unknown Rx Nystas/Diphen/Xyl Visc/Mylanta 15 ml PO Q3H PRN #100 ml 05/30/19 Unknown Rx [Magic Mouthwash] Penicillin Vk [Veetids TAB] 250 mg PO QID 10 Days #40 tablet 05/30/19 Unknown Rx Clindamycin [Clindamycin CAP] 300 mg PO Q8H #21 cap 07/23/19 Unknown Rx Aspirin 325 mg PO QDAY #30 tablet 03/29/21 Unknown Rx Azithromycin [Zithromax Z-PORTILLO] 250 mg PO DAILY #4 03/29/21 Unknown Rx Benzonatate [Tessalon Perles] 100 mg PO Q8HR PRN #20 cap 03/29/21 Unknown Rx Review of Systems Constitutional: weakness, malaise, lethargy, no weight loss, no weight gain, no fever Ears, nose, mouth and throat: no ear pain, no ear discharge, no decreased hearing, no nasal congestion Cardiovascular: chest pain, shortness of breath, decreased exercise tolerance Respiratory: cough, shortness of breath, no wheezing, no pleurisy Gastrointestinal: no nausea, no vomiting, no diarrhea, no constipation Genitourinary Male: no hematuria, no flank pain, no discharge, no urinary frequency, no urinary hesitancy Rectal: no pain, no incontinence, no bleeding Musculoskeletal: no neck stiffness, no neck pain, no shooting arm pain, no arm numbness/tingling, no shooting leg pain Integumentary: no rash, no redness, no sores, no wounds Neurological: no head injury, no transient paralysis, no weakness, no parathesias, no numbness, no tingling Psychiatric: no anxiety, no change in sleep habits, no insomnia, no change in libido Endocrine: no cold intolerance, no polyphagia, no excessive thirst, no polyuria, no excessive sweating Hematologic/Lymphatic: no easy bruising, no easy bleeding Allergic/Immunologic: no wheezing Exam - Constitutional Vitals: Temp Pulse Resp BP Pulse Ox 97.5 F L 49 L 16 153/60 97 04/01/21 11:40 04/01/21 17:06 04/01/21 17:06 04/01/21 17:06 04/01/21 17:06 General appearance: Present: mild distress - EENT Eyes: Present: PERRL ENT: hearing intact, clear oral mucosa - Neck Neck: Present: supple, normal ROM - Respiratory Respiratory effort: labored, accessory muscle use Respiratory: bilateral: diminished, rhonchi - Cardiovascular Rhythm: other (Bradycardia) Heart Sounds: Present: S1 & S2. Absent: rub, click - Extremities Extremities: pulses symmetrical, No edema Peripheral Pulses: within normal limits - Abdominal General gastrointestinal: Present: soft, non-tender, non-distended, normal bowel sounds Male genitourinary: Present: normal - Integumentary Integumentary: Present: clear, warm, dry - Musculoskeletal Musculoskeletal: gait normal, strength equal bilaterally - Psychiatric Psychiatric: appropriate mood/affect, intact judgment & insight - Neurologic Neurologic: CNII-XII intact, moves all extremities HEART Score - HEART Score EKG: Normal Age: 45-65 Risk factors: > 3 risk factors or hx of atherosclerotic disease Troponin: Troponin T 0.013 ng/mL (0.00-0.029) 04/01/21 14:14 Troponin: < normal limit - Critical Actions Critical Actions: 4-6 pts:12-16.6% risk of adverse cardiac event. Should be admitted Results - Labs CBC & Chem 7: 04/01/21 12:01 04/01/21 12:01 Labs: Abnormal lab results 04/01/21 04/01/21 04/01/21 Range/Units 12:01 12:01 14:14 Plt Count 119 L (140-440) K/mm3 Lymph % (Auto) 8.5 L (13.4-35.0) % [place] % (Auto) 7.6 H (0.0-7.3) % Lymph # (Auto) 0.4 L (1.2-5.4) K/mm3 Seg Neutrophils % 83.2 H (40.0-70.0) % D-Dimer 1158.66 H (0-234) ng/mlDDU Glucose 108 H (75-100) mg/dL Albumin 3.2 L (3.9-5) g/dL Assessment and Plan - Patient Problems (1) Pneumonia Current Visit: Yes Status: Acute Plan to address problem: CT scan chest, chest x-ray, supplemental oxygen, pulse oximetry, nebulizer therapy, IV antibiotic therapy, (2) HIV (human immunodeficiency virus infection) Current Visit: Yes Status: Acute Qualifiers: HIV symptom status: currently asymptomatic, with history of HIV-related illness Qualified Code(s): B20 - Human immunodeficiency virus [HIV] disease Plan to address problem: Continue medical management, outpatient infectious disease service follow-up. (3) Angina at rest Current Visit: Yes Status: Acute Plan to address problem: Serial cardiac enzymes, EKG, telemetry, cardiology team consulted, morphine, supplemental oxygen, nitro, aspirin, further care and evaluation as per cardiology team. (4) COVID-19 vaccination not done Current Visit: Yes Status: Acute Plan to address problem: Patient counseled, patient acknowledges understanding instructions (5) Suspected 2019 novel coronavirus infection Current Visit: Yes Status: Acute Plan to address problem: Coronavirus protocol: Chest x-ray, CBC, CMP, IV antibiotic therapy, supplemental oxygen, pulse oximetry, nebulizer therapy, vitamin D therapy, start vitamin C therapy, zinc therapy, prophylactic anticoagulation (6) Hypertension Current Visit: Yes Status: Acute Qualifiers: Hypertension type: primary hypertension Qualified Code(s): I10 - Essential (primary) hypertension Plan to address problem: Monitor blood pressure every shift, continue medical management (7) Diabetes Current Visit: Yes Status: Acute Plan to address problem: Consistent carbohydrate diet, insulin protocol, hypoglycemia protocol, Accu- Chek. (8) BPH (benign prostatic hyperplasia) Current Visit: Yes Status: Acute Plan to address problem: Continue medical management, supportive care. Outpatient urology follow-up. (9) Nicotine dependence Current Visit: Yes Status: Acute Qualifiers: Nicotine product type: cigarettes Substance use status: in withdrawal Qualified Code(s): F17.213 - Nicotine dependence, cigarettes, with withdrawal Plan to address problem: Smoke cessation counseling, supportive care, behavior change counseling, +15 minutes. (10) DVT prophylaxis Current Visit: Yes Status: Acute Plan to address problem: SCD to bilateral lower extremities while in bed, prophylactic anticoagulation (11) Advance care planning Current Visit: Yes Status: Acute Plan to address problem: Disease education conducted, care plan discussed, diagnosis discussed, prognosis discussed, patient is full code. Patient acknowledges understanding and agreement with care plan, +30 minutes.
[2021-04-01] MEDS ORDERED: ASPIRIN 81 MG TAB CHEW PO STA (18:09)
[2021-04-01] MEDS ORDERED: ALBUTEROL 2.5 MG/3 ML NEBU IH PRN (18:09)
[2021-04-01] MEDS ORDERED: oxyCODONE /ACETAMINOPHEN 5-325MG TAB PO PRN (18:09)
[2021-04-01] MEDS ORDERED: HYDROmorphone 1 MG/1 ML INJ IV PRN (18:09)
[2021-04-01] MEDS ORDERED: ACETAMINOPHEN 325 MG TAB PO PRN ×2 (18:09)
[2021-04-01] MEDS ORDERED: traMADol 50 MG TAB PO PRN (18:09)
[2021-04-01] MEDS ORDERED: ONDANSETRON 4 MG/2 ML INJ IV PRN (18:09)
[2021-04-01] MEDS: ASCORBIC ACID 500 MG TAB PO SCH (22:23)
[2021-04-01] MEDS: ZINC SULFATE 220 MG CAP PO SCH (22:23)
[2021-04-01] MEDS: HEPARIN 5,000 UNIT/1 ML VIAL SUB-Q SCH (22:30)
[2021-04-01] MEDS: methylPREDNISolone Sod Succinate 40 MG/1 ML INJ IV SCH (23:03)
[2021-04-02 01:31] LABS: Chol/HDL Ratio 4.52 %
[2021-04-02 05:19] LABS: Basophils % (Auto) 0.2 % (0.0-1.8); Hematocrit 38.3 % (35.5-45.6); Hemoglobin 12.5 gm/dl (11.8-15.2); Lymphocytes # (Auto) 0.4 K/mm3 (1.2-5.4); Lymphocytes % (Auto) 9.1 % (13.4-35.0); Mean Corpuscular HGB Conc 33 % (32-34); Mean Corpuscular Volume 91 fl (84-94); Monocytes # (Auto) 0.1 K/mm3 (0.0-0.8); Platelet Count 131 K/mm3 (140-440); Red Blood Count 4.21 M/mm3 (3.65-5.03); Red Cell Distribution Width 13.5 % (13.2-15.2)
[2021-04-02 05:44] LABS: Alanine Aminotransferase 16 units/L (7-56); Albumin 3.1 g/dL (3.9-5); BUN/Creatinine Ratio 16; Blood Urea Nitrogen 14 mg/dL (9-20); Calcium 8.2 mg/dL (8.4-10.2); Hemolysis Index 3
[2021-04-02] MEDS: methylPREDNISolone Sod Succinate 40 MG/1 ML INJ IV SCH ×3 (09:44→22:46)
[2021-04-02] MEDS ORDERED: CHOLECALCIFEROL (VIT D3) 400 UNIT TAB PO SCH (10:00)
[2021-04-02] MEDS ORDERED: CHOLECALCIFEROL (VIT D3) 1000 UNIT (25 mcg) TAB PO SCH (10:00)
[2021-04-02] MEDS: HEPARIN 5,000 UNIT/1 ML VIAL SUB-Q SCH ×2 (10:12→23:51)
[2021-04-02] MEDS: ASCORBIC ACID 500 MG TAB PO SCH ×2 (11:18→23:52)
[2021-04-02] MEDS: ZINC SULFATE 220 MG CAP PO SCH ×2 (12:07→23:52)
[2021-04-02 12:33] VITALS: BP 171/78
--- NOTE | 2021-04-02 14:54 | Consultation ---
History of Present Illness Consult date: 04/02/21 Requesting physician: BEL WANG Consult reason: chest pain History of present illness: Patient is a 65-year-old male with a past medical history of coronary artery disease s/p PCI, HTN, hyperlipidemia, nicotine dependence and HIV who reports with a complaint of chest pain x4 days. Patient also has experienced shortness of breath and that same timeframe. Patient reports that the chest pain was ar ound 7 out of 10 and also associated with shortness of breath some generalized weakness. At time of interview patient reports that pain has subsided and is only intermittent. Of note patient was found to have pneumonia and be bradycardic. Patient denies nausea vomiting, diaphoresis, palpitations, or lightheadedness. Patient is previously unknown to our practice but follows along with [facility]. Cardiology is consulted for chest pain Past History Past Medical History: CAD, diabetes, HIV/AIDS, hypertension, other (See HPI) Past Surgical History: Other (Cardiac stent placement) Social history: single, smoking. denies: alcohol abuse, prescription drug abuse Medications and Allergies Allergies Allergy/AdvReac Type Severity Reaction Status Date / Time No Known Allergies Allergy Verified 04/01/21 11:34 Home Medications Medication Instructions Recorded Confirmed Last Taken Type Prednisone [predniSONE 10 mg 10 mg PO .TAPER #1 tab.ds.pk 12/31/17 Unknown Rx (6-Day Pack, 21 Tabs)] hydrOXYzine PAMOATE [Vistaril] 25 mg PO Q6HR PRN #12 capsule 12/31/17 Unknown Rx Ibuprofen [Motrin 800 MG tab] 800 mg PO Q8HR PRN #15 tablet 02/06/18 Unknown Rx Nystas/Diphen/Xyl Visc/Mylanta 15 ml PO Q3H PRN #100 ml 05/30/19 Unknown Rx [Magic Mouthwash] Penicillin Vk [Veetids TAB] 250 mg PO QID 10 Days #40 tablet 05/30/19 Unknown Rx Clindamycin [Clindamycin CAP] 300 mg PO Q8H #21 cap 07/23/19 Unknown Rx Aspirin 325 mg PO QDAY #30 tablet 03/29/21 Unknown Rx Azithromycin [Zithromax Z-PORTILLO] 250 mg PO DAILY #4 03/29/21 Unknown Rx Benzonatate [Tessalon Perles] 100 mg PO Q8HR PRN #20 cap 03/29/21 Unknown Rx Active Meds: Active Medications Acetaminophen (Acetaminophen 325 Mg Tab) 650 mg PO Q4H PRN PRN Reason: Pain MILD(1-3)/Fever >100.5/BENITES Albuterol (Albuterol 2.5 Mg/3 Ml Nebu) 2.5 mg IH Q4HRT PRN PRN Reason: Shortness Of Breath Amlodipine Besylate (Amlodipine 10 Mg Tab) 10 mg PO QDAY [facility] Ascorbic Acid (Ascorbic Acid 500 Mg Tab) 500 mg PO BID [facility] Last Admin: 04/02/21 11:18 Dose: 500 mg Aspirin (Aspirin 81 Mg Tab Chew) 81 mg PO QDAY [facility] Cholecalciferol (Cholecalciferol (Vit D3) 1000 Unit (25 Mcg) Tab) 1,000 unit PO QDAY [facility] Last Admin: 04/02/21 11:18 Dose: 1,000 unit Heparin Sodium (Porcine) (Heparin 5,000 Unit/1 Ml Vial) 5,000 unit SUB-Q Q12HR [facility] Last Admin: 04/02/21 10:12 Dose: 5,000 unit Hydromorphone HCl (Hydromorphone 1 Mg/1 Ml Inj) 0.5 mg IV Q23H PRN PRN Reason: Pain , Severe (7-10) Lisinopril (Lisinopril 10 Mg Tab) 10 mg PO QDAY [facility] Methylprednisolone Sodium Succinate (Methylprednisolone Sod Succinate 40 Mg/1 Ml Inj) 40 mg IV Q8HR [facility] Last Admin: 04/02/21 09:44 Dose: 40 mg Metoprolol Tartrate (Metoprolol Tartrate 25 Mg Tab) 12.5 mg PO BID [facility] Ondansetron HCl (Ondansetron 4 Mg/2 Ml Inj) 4 mg IV Q8H PRN PRN Reason: Nausea And Vomiting Oxycodone/Acetaminophen (Oxycodone /Acetaminophen 5-325mg Tab) 1 tab PO Q16H PRN PRN Reason: Pain, Moderate (4-6) Sodium Chloride (Sodium Chloride 0.9% 10 Ml Flush Syringe) 10 ml IV BID [facility] Last Admin: 04/02/21 11:18 Dose: 10 ml Sodium Chloride (Sodium Chloride 0.9% 10 Ml Flush Syringe) 10 ml IV PRN PRN PRN Reason: LINE FLUSH Tramadol HCl (Tramadol 50 Mg Tab) 50 mg PO Q6H PRN PRN Reason: Pain, Moderate (4-6) Zinc Sulfate (Zinc Sulfate 220 Mg Cap) 220 mg PO BID [facility] Last Admin: 04/02/21 12:07 Dose: 220 mg Review of Systems Constitutional: weakness, no weight loss, no weight gain, no fever, no chills Ears, nose, mouth and throat: no ear discharge, no decreased hearing, no nose pain, no nasal congestion, no nasal discharge Cardiovascular: chest pain, shortness of breath, no orthopnea, no palpitations, no rapid/irregular heart beat Respiratory: shortness of breath, no cough, no cough with sputum, no excessive sputum Gastrointestinal: no abdominal pain, no nausea, no vomiting Musculoskeletal: no neck stiffness, no neck pain, no shooting arm pain, no redness of joints Integumentary: no rash, no pruritis, no redness Neurological: no head injury, no transient paralysis, no paralysis Psychiatric: no anxiety, no memory loss Endocrine: no cold intolerance, no heat intolerance Hematologic/Lymphatic: no easy bruising, no easy bleeding Physical Examination Vital Signs Temp Pulse Resp BP Pulse Ox 97.5 F L 55 L 20 165/73 97 04/01/21 11:40 04/01/21 11:40 04/01/21 11:40 04/01/21 11:40 04/01/21 11:40 General appearance: no acute distress HEENT: Positive: PERRL Neck: Positive: trachea midline Cardiac: Positive: Reg Rate and Rhythm Lungs: Positive: clear to auscultation, Normal Breath Sounds Neuro: Positive: Grossly Intact Abdomen: Positive: Soft, Active Bowel Sounds Skin: Negative: Rash, Suspicious Lesions, Ulceration Extremities: Present: upper extr. pulses. Absent: edema Results 04/02/21 04:16 04/02/21 04:16 Cardiac Enzymes 04/02/21 Range/Units 04:16 AST 23 (5-40) units/L Lipids 04/01/21 Range/Units 22:32 Triglycerides 116 (2-149) mg/dL Cholesterol 163 (50-199) mg/dL HDL Cholesterol 36 L (40-59) mg/dL Cholesterol/HDL Ratio 4.52 % CBC 04/02/21 Range/Units 04:16 WBC 4.9 (4.5-11.0) K/mm3 RBC 4.21 (3.65-5.03) M/mm3 Hgb 12.5 (11.8-15.2) gm/dl Hct 38.3 (35.5-45.6) % Plt Count 131 L (140-440) K/mm3 Lymph # (Auto) 0.4 L (1.2-5.4) K/mm3 [place] # (Auto) 0.1 (0.0-0.8) K/mm3 Eos # (Auto) 0.0 (0.0-0.4) K/mm3 Baso # (Auto) 0.0 (0.0-0.1) K/mm3 Comprehensive Metabolic Panel 04/02/21 Range/Units 04:16 Sodium 135 L (137-145) mmol/L Potassium 4.9 D (3.6-5.0) mmol/L Chloride 101.9 (98-107) mmol/L Carbon Dioxide 23 (22-30) mmol/L BUN 14 (9-20) mg/dL Creatinine 0.9 (0.8-1.3) mg/dL Glucose 198 H (75-100) mg/dL Calcium 8.2 L (8.4-10.2) mg/dL AST 23 (5-40) units/L ALT 16 (7-56) units/L Alkaline Phosphatase 134 H (35-129) units/L Total Protein 7.7 (6.3-8.2) g/dL Albumin 3.1 L (3.9-5) g/dL - Imaging and Cardiology Echo: pending EKG interpretations - Telemetry EKG Rhythm: Sinus Bradycardia - EKG Sinus rhythms and dysrhythmias: sinus rhythm Assessment and Plan Patient is a 65-year-old male with a past medical history of coronary artery disease s/p PCI, HTN, hyperlipidemia, nicotine dependence and HIV who reports with a complaint of chest pain x4 days. Patient also has experienced shortness of breath and that same timeframe. Chest Pain PNA CAD s/p PCI HTN HLD Nicotine dependence HIV Outpatient medications: lisinopril 20 mg p.o. daily, metoprolol 50 mg p.o. twice daily, amlodipine 10 mg p.o. daily Plan: EKG shows sinus bradycardia 58 no acute ischemic changes. Troponin is noted to be minimally elevated and stable. Echo pending Stress test in the a.m. n.p.o. after midnight Resume lisinopril 20 mg p.o. daily, amlodipine 10 mg p.o. daily. Due to bradycardia will decrease to metoprolol 12.5 mg p.o. twice daily. Patient seen in conjunction with Dr. Bear who agrees with this plan of care - Patient Problems (1) Angina at rest Current Visit: Yes Status: Acute (2) BPH (benign prostatic hyperplasia) Current Visit: Yes Status: Acute (3) COVID-19 vaccination not done Current Visit: Yes Status: Acute (4) Diabetes Current Visit: Yes Status: Acute (5) HIV (human immunodeficiency virus infection) Current Visit: Yes Status: Acute Qualifiers: HIV symptom status: currently asymptomatic, with history of HIV-related illness Qualified Code(s): B20 - Human immunodeficiency virus [HIV] disease (6) Hypertension Current Visit: Yes Status: Acute Qualifiers: Hypertension type: primary hypertension Qualified Code(s): I10 - Essential (primary) hypertension (7) Pneumonia Current Visit: Yes Status: Acute (8) History of heart artery stent Current Visit: No Status: Acute
[2021-04-02] MEDS ORDERED: amLODIPine 10 MG TAB PO SCH (16:00)
[2021-04-02] MEDS ORDERED: LISINOPRIL 10 MG TAB PO SCH (16:00)
[2021-04-02] MEDS ORDERED: ENOXAPARIN 80 MG/0.8 ML INJ SUB-Q SCH (20:00)
[2021-04-02] MEDS ORDERED: METOPROLOL TARTRATE 25 MG TAB PO SCH (22:00)
--- NOTE | 2021-04-03 08:33 | Discharge Summary ---
Providers - Providers Date of Admission: 04/01/21 18:09 Date of discharge: 04/02/21 Attending physician: NINI SHEIKH 04/01/21 Consult to Cardiac Rehabilitation [CONS] Routine Reason For Exam: Phase I 04/01/21 17:20 Consult to Physician [CONS] Stat Comment: Consulting Provider: DANIELA SONG Physician Instructions: Reason For Exam: unstable angina Primary care physician: [employer]PERATIONS LEAD Hospitalization Condition: Stable Hospital course: 65 YO Male with HIV on Antiretroviral therapy, CAD S/P Stent Placement, HTN, DM, BPH, Nicotine Dependence presents to ED for evaluation. Patient reports "it is little hard to breathe and my chest hurts". Patient states that he has experienced intermittent shortness of breath over the past 2 days with intermittent symptoms over the same timeframe. Patient presented to [facility] ED 3 days ago with the aforementioned symptoms and was treated with outpatient antibiotic therapy without improvement of symptoms. Patient returns for further evaluation today. Patient also acknowledges intermittent chest pain which coincides with the shortness of breath. Patient states that the pain is 4/10, intermittent, associated with shortness of breath, generalized weakness, subjective fever, malaise, body aches, dry cough, diminished exercise tolerance. Patient denies exacerbating or alleviating factors. Patient transported to [facility] via private vehicle for further care and evaluation of the aforementioned symptoms. The patient was seen and evaluated in the emergency department. All lab and imaging studies reviewed. Patient found to have a heart rate in the 40s. Patient also found to have angina, as well as pneumonia, bradycardia. Patient mated to medical floor with telemetry and initiated on chest pain protocol, pneumonia protocol, as well as coronavirus protocol. No prior admission for review. No medication listed at time of admission for reconciliation. Advanced care planning conducted in ED. patient is not vaccinated against COVID-19. 04/02/2021 Patient is upset about staying in suspension Wants to leave AMA Counseled him about his diagnosis of elevated troponins and the need for Lexiscan, cardiology consult and possible echocardiogram Assessment and Plan - Patient Problems (1) Pneumonia Current Visit: Yes Status: Acute Plan to address problem: CT scan chest, chest x-ray, supplemental oxygen, pulse oximetry, nebulizer therapy, IV antibiotic therapy, (2) HIV (human immunodeficiency virus infection) Current Visit: Yes Status: Acute Qualifiers: HIV symptom status: currently asymptomatic, with history of HIV-related illness Qualified Code(s): B20 - Human immunodeficiency virus [HIV] disease Plan to address problem: Continue medical management, outpatient infectious disease service follow-up. (3) Angina at rest Troponins are going up Needs Lexiscan in the morning and Lovenox 80 mg subcu every 12 Treat as NSTEMI Also echocardiogram Discussed with patient at length Patient is upset that he is still in the reassessment chair (4) COVID-19 vaccination not done Current Visit: Yes Status: Acute Plan to address problem: COVID test pending [place]: Acute Plan to address problem: Coronavirus protocol: Chest x-ray, CBC, CMP, IV antibiotic therapy, supplemental oxygen, pulse oximetry, nebulizer therapy, vitamin D therapy, start vitamin C therapy, zinc therapy, prophylactic anticoagulation (6) Hypertension Current Visit: Yes Status: Acute Qualifiers: Hypertension type: primary hypertension Qualified Code(s): I10 - Essential (primary) hypertension Plan to address problem: Monitor blood pressure every shift, continue medical management (7) Diabetes Current Visit: Yes Status: Acute Plan to address problem: Consistent carbohydrate diet, insulin protocol, hypoglycemia protocol, Accu- Chek. (8) BPH (benign prostatic hyperplasia) Current Visit: Yes Status: Acute Plan to address problem: Continue medical management, supportive care. Outpatient urology follow-up. (9) Nicotine dependence Current Visit: Yes Status: Acute Qualifiers: Nicotine product type: cigarettes Substance use status: in withdrawal Qualified Code(s): F17.213 - Nicotine dependence, cigarettes, with withdrawal Plan to address problem: Smoke cessation counseling, supportive care, behavior change counseling, +15 minutes. (10) DVT prophylaxis Current Visit: Yes Status: Acute Plan to address problem: SCD to bilateral lower extremities while in bed, prophylactic anticoagulation (11) Advance care planning Current Visit: Yes Status: Acute Plan to address problem: Disease education conducted, care plan discussed, diagnosis discussed, prognosis discussed, patient is full code. Patient acknowledges understanding and agreement with care plan, +30 minutes. Disposition: LEFT AGAINST MEDICAL ADVICE Final Discharge Diagnosis (Prints w/discharge instructions): NSTEMI. Pneumonia. hypertension Time spent for discharge: 35 minutes Core Measure Documentation - Palliative Care Palliative Care/ Comfort Measures: Not Applicable - Core Measures Any of the following diagnoses?: none Exam - Constitutional Vitals: Temp Pulse Resp BP Pulse Ox 97.6 F 70 18 171/78 94 04/02/21 12:31 04/02/21 12:31 04/02/21 12:31 04/02/21 12:31 04/02/21 12:31 General appearance: Present: no acute distress, well-nourished - EENT Eyes: Present: PERRL ENT: hearing intact, clear oral mucosa - Neck Neck: Present: supple, normal ROM - Respiratory Respiratory effort: normal Respiratory: bilateral: CTA - Cardiovascular Heart rate: 78 Rhythm: regular Heart Sounds: Present: S1 & S2. Absent: rub, click - Extremities Extremities: pulses symmetrical, No edema Peripheral Pulses: within normal limits - Abdominal General gastrointestinal: Present: soft, non-tender, non-distended, normal bowel sounds Male genitourinary: Present: normal - Integumentary Integumentary: Present: clear, warm, dry - Musculoskeletal Musculoskeletal: gait normal, strength equal bilaterally - Psychiatric Psychiatric: appropriate mood/affect, intact judgment & insight - Neurologic Neurologic: CNII-XII intact, moves all extremities Plan Activity: no restrictions Diet: low salt Follow up with: PRIMARY CARE, [Primary Care Provider] - 3-5 Days Forms: AMA Form
[2021-04-03] MEDS ORDERED: ASPIRIN 81 MG TAB CHEW PO SCH (10:00)
== END 2021-04-03 05:28 | disposition left against medical advice (07) ==
LOC: ED 11:32 → 4A 18:09 → 3A 04-02 23:20
PROVIDERS: ADMIT Internal Medicine; ATTEND Internal Medicine
DX: J18.9 Pneumonia, unspecified organism (principal); B20 Human immunodeficiency virus [HIV] disease; I49.5 Sick sinus syndrome; I25.10 Atherosclerotic heart disease of native coronary artery without angina pectoris; I10 Essential (primary) hypertension; E11.9 Type 2 diabetes mellitus without complications; N40.0 Benign prostatic hyperplasia without lower urinary tract symptoms; F17.213 Nicotine dependence, cigarettes, with withdrawal; Z79.82 Long term (current) use of aspirin; Z95.1 Presence of aortocoronary bypass graft
CPT/HCPCS: 36415; 71046; 71275; 80053; 80061; 83690; 84484; 85025; 85379; 93005; 93306; 96372; 96374; 96375; 96376; 99285; G0378; J1644; J2270; J2405; J2920; Q9967